=== PATIENT | female | born 1995 | race Caucasian/White ===

== ENCOUNTER 2019-03-16 09:41 | Emergency (ER) | payer OTHER ==
[~2019-03-16] VITALS: Ht 157.5 cm; Wt 48.3 kg
[2019-03-16 10:54] LABS: BASOPHILS % (AUTO) 0.2 % (0-1); EOSINOPHILS # (AUTO) 0.1 X10'3 (0-0.9); EOSINOPHILS % (AUTO) 0.9 % (0-6); HEMATOCRIT 38.3 % (35.0-45.0); HEMOGLOBIN 12.9 g/dl (12.0-16.0); LYMPHOCYTES # (AUTO) 1.9 X10'3 (1.1-4.8); LYMPHOCYTES % (AUTO) 22.8 % (21-51); MEAN CORPUSCULAR HEMOGLOBIN 30.1 PG (27.0-31.0); MEAN CORPUSCULAR HGB CONC 33.7 g/dL (33.0-36.5); MEAN CORPUSCULAR VOLUME 89.2 FL (78-98); MEAN PLATELET VOLUME 8.3 FL (7.4-10.4); MONOCYTES # (AUTO) 0.6 X10'3 (0-0.9); NEUTROPHILS # (AUTO) 5.8 X10'3 (1.8-7.7); NEUTROPHILS % (AUTO) 69.1 % (42-75); PLATELET COUNT 226 X10'3 (140-440); RED CELL DISTRIBUTION WIDTH 13.6 % (11.5-14.5); WHITE BLOOD COUNT 8.4 X10'3 (4.5-11.0)
--- NOTE | 2019-03-16 11:12 | NUR ---
[place] tech at bedside.
--- NOTE | 2019-03-16 11:34 | NUR ---
US IS COMPLETE
[2019-03-16 12:47] VITALS: BP 109/43
== END 2019-03-16 12:48 | disposition home or self-care (01) ==
LOC: ER 09:42
DX: N93.8 Other specified abnormal uterine and vaginal bleeding (principal); Z98.890 Other specified postprocedural states
CPT/HCPCS: 36415; 76856; 84702; 85025; 99284

== ENCOUNTER 2019-11-11 19:09 | Emergency (ER) | payer MEDICAID, OTHER ==
[~2019-11-11] VITALS: Ht 157.5 cm; Wt 50.0 kg
[2019-11-11 19:23] VITALS: BP 108/70
[2019-11-11] MEDS ORDERED: amox tr/potassium clavulanate 875/125mg TAB PO ONE (21:25)
[2019-11-11] MEDS ORDERED: ketorolac trometh. 30mg/ml inj. IM ONE (21:25)
[2019-11-11] MEDS ORDERED: HYDR-4353 PO (21:28)
[2019-11-11] MEDS ORDERED: AMOX-422 PO (21:28)
== END 2019-11-11 21:44 | disposition home or self-care (01) ==
LOC: ER 19:10
DX: K11.8 Other diseases of salivary glands (principal); K11.5 Sialolithiasis; K14.6 Glossodynia; R11.10 Vomiting, unspecified; F12.90 Cannabis use, unspecified, uncomplicated; Z72.89 Other problems related to lifestyle; Z79.2 Long term (current) use of antibiotics; Z79.899 Other long term (current) drug therapy
CPT/HCPCS: 96372; 99283; J1885

== ENCOUNTER 2021-03-14 10:31 | Emergency (ER) | payer MEDICAID ==
[~2021-03-14] VITALS: Ht 157.5 cm; Wt 47.2 kg
[2021-03-14 10:41] VITALS: BP 106/67
[2021-03-14 11:09] LABS: BASOPHILS % (AUTO) 0.7 % (0-1); EOSINOPHILS % (AUTO) 0.6 % (0-6); HEMATOCRIT 38.5 % (35.0-45.0); HEMOGLOBIN 13.2 g/dl (12.0-16.0); LYMPHOCYTES # (AUTO) 1.1 X10'3 (1.1-4.8); LYMPHOCYTES % (AUTO) 37.7 % (21-51); MEAN CORPUSCULAR HEMOGLOBIN 30.8 PG (27.0-31.0); MEAN CORPUSCULAR HGB CONC 34.2 g/dL (33.0-36.5); MEAN PLATELET VOLUME 8.5 FL (7.4-10.4); MONOCYTES # (AUTO) 0.4 X10'3 (0-0.9); MONOCYTES % (AUTO) 13.1 % (2-12); NEUTROPHILS # (AUTO) 1.3 X10'3 (1.8-7.7); NEUTROPHILS % (AUTO) 47.9 % (42-75); PLATELET COUNT 206 X10'3 (140-440); RED BLOOD COUNT 4.28 X10'6 (4.20-5.60); RED CELL DISTRIBUTION WIDTH 13.1 % (11.5-14.5); WHITE BLOOD COUNT 2.8 X10'3 (4.5-11.0)
[2021-03-14 11:27] LABS: ALANINE AMINOTRANSFERASE 26 U/L (12-78); ALBUMIN 3.6 G/DL (3.4-5.0); ALBUMIN/GLOBULIN RATIO 1.2 (1.1-1.5); ALKALINE PHOSPHATASE 40 IU/L (46-116); ANION GAP 7 (8-16); ASPARTATE AMINO TRANSFERASE 30 U/L (10-37); BILIRUBIN,TOTAL 0.4 MG/DL (0.1-1.0); BLOOD UREA NITROGEN 7 MG/DL (7-18); BUN/CREATININE RATIO 10.9 (6.6-38.0); CALCIUM 8.7 MG/DL (8.5-10.1); CHLORIDE 104 MMOL/L (99-107); CREATININE 0.64 MG/DL (0.40-0.90); GLUCOSE 94 MG/DL (70-104); POTASSIUM 3.7 MMOL/L (3.5-5.1); SODIUM 139 MMOL/L (135-145); TOTAL CARBON DIOXIDE 28.2 MMOL/L (24-32); TOTAL PROTEIN 6.6 G/DL (6.4-8.2); eGFR > 90 ML/MIN
[2021-03-14 11:38] LABS: PLATELET ESTIMATE NORMAL; TOTAL CELLS COUNTED 100
[2021-03-14 11:56] LABS: BETA HCG,QUANTITATIVE 1279 mIU/ml
== END 2021-03-14 12:30 | disposition left against medical advice (07) ==
LOC: ER 10:32
DX: O26.891 Other specified pregnancy related conditions, first trimester (principal); N93.8 Other specified abnormal uterine and vaginal bleeding; F12.90 Cannabis use, unspecified, uncomplicated; Z3A.01 Less than 8 weeks gestation of pregnancy; Z72.89 Other problems related to lifestyle; Z53.21 Procedure and treatment not carried out due to patient leaving prior to being seen by health care provider
CPT/HCPCS: 80053; 84702; 85007; 85025

== ENCOUNTER 2021-03-14 18:27 | Emergency (ER) | payer MEDICAID ==
[~2021-03-14] VITALS: Ht 157.5 cm; Wt 47.4 kg
[2021-03-14 18:32] VITALS: BP 124/82
== END 2021-03-15 02:20 | disposition left against medical advice (07) ==
LOC: ER 18:29
DX: O26.90 Pregnancy related conditions, unspecified, unspecified trimester (principal); Z3A.00 Weeks of gestation of pregnancy not specified; Z53.21 Procedure and treatment not carried out due to patient leaving prior to being seen by health care provider

== ENCOUNTER 2021-03-15 11:41 | Emergency (ER) | payer MEDICAID ==
[~2021-03-15] VITALS: Ht 157.5 cm; Wt 47.0 kg
[2021-03-15 11:56] VITALS: BP 104/62
== END 2021-03-15 16:15 | disposition home or self-care (01) ==
LOC: ER 11:41
DX: O02.1 Missed abortion (principal); F12.90 Cannabis use, unspecified, uncomplicated; Z3A.01 Less than 8 weeks gestation of pregnancy; Z72.89 Other problems related to lifestyle
CPT/HCPCS: 36415; 76801; 84702; 99284